=== PATIENT | male | born 1960 | race Caucasian/White ===

== ENCOUNTER 2022-04-15 10:00 | Inpatient (IN) | payer BC ==
[2022-04-15] MEDS ORDERED: LABETALOL 5 MG/ML VIAL MDV IVP STA (10:21)
--- NOTE | 2022-04-15 10:21 | ED ---
General Adult HPI - General Chief complaint: Neuro Symptoms/Deficit Stated complaint: Neuro Symptoms Time Seen by Provider: 04/15/22 10:08 Source: patient, RN notes reviewed Mode of arrival: ambulatory Limitations: no limitations - History of Present Illness Initial comments: Patient is a pleasant 61-year-old male presenting to the emergency department with concern for stroke symptoms. Onset of symptoms was 3 days ago. Patient has noticed weakness of the left side of the face. Patient also feels there is mild weakness of the arm and leg. Patient has had some mild difficulty with walking and has lean towards left little bit. No headache. No confusion. No speech problems. No history of similar symptoms previously. Symptoms have been persistent. - Related Data Home Medications Medication Instructions Recorded Confirmed Aspirin EC [Ecotrin Low Dose] 162 mg PO DAILY 04/15/22 04/15/22 Cholecalciferol [Vitamin D3 (25 25 mcg PO DAILY 04/15/22 04/15/22 Mcg = 1000 Iu)] Zinc 50 mg PO DAILY 04/15/22 04/15/22 Allergies Allergy/AdvReac Type Severity Reaction Status Date / Time No Known Allergies Allergy Verified 04/15/22 10:44 Review of Systems ROS Statement: Those systems with pertinent positive or pertinent negative responses have been documented in the HPI. ROS Other: All systems not noted in ROS Statement are negative. Constitutional: Denies: fever Eyes: Denies: eye pain ENT: Denies: ear pain Respiratory: Denies: cough Cardiovascular: Denies: chest pain Endocrine: Denies: fatigue Gastrointestinal: Denies: abdominal pain Genitourinary: Denies: dysuria Musculoskeletal: Denies: back pain Skin: Denies: rash Neurological: Reports: as per HPI, weakness, paresthesias. Denies: headache, numbness, confusion Past Medical History Past Medical History: Hyperlipidemia, Hypertension Additional Past Medical History / Comment(s): Arthritis History of Any Multi-Drug Resistant Organisms: None Reported Past Surgical History: Orthopedic Surgery Past Psychological History: No Psychological Hx Reported Smoking Status: Never smoker Past Alcohol Use History: Occasional Past Drug Use History: None Reported General Exam Limitations: no limitations General appearance: alert, in no apparent distress Head exam: Present: normocephalic Eye exam: Present: normal appearance, PERRL, EOMI ENT exam: Present: normal oropharynx Neck exam: Present: normal inspection Respiratory exam: Present: normal lung sounds bilaterally Cardiovascular Exam: Present: regular rate, normal rhythm GI/Abdominal exam: Present: soft. Absent: tenderness Extremities exam: Present: normal inspection Neurological exam: Present: alert, oriented X3, CN II-XII intact (Except for mild left facial droop. Forehead not involved.) Expanded Neurological exam: Present: protecting the airway Patient oriented to: Present: person, place, time Speech: Present: fluid speech Cranial nerves: EOM's Intact: Normal, Facial Sensation: Normal, Facial Palsy with Forehead Movement: Abnormal Left Sensory exam: Upper Extremity Light Touch: Normal, Lower Extremity Light Touch: Normal Motor strength exam: RUE: 5, LUE: 4, RLE: 5, LLE: 5 Eye Response: (4) open spontaneously Motor Response: (6) obeys commands Verbal Response: (5) oriented Psychiatric exam: Present: normal affect, normal mood Skin exam: Present: normal color Course Vital Signs 04/15/22 04/15/22 04/15/22 10:02 10:18 11:12 Temperature 97.8 F Pulse Rate 96 78 77 Respiratory 18 18 18 Rate Blood Pressure 241/129 239/132 227/130 O2 Sat by Pulse 100 94 L 94 L Oximetry - Reevaluation(s) Reevaluation #1: 04/15/22 11:32 Patient is not a TPA candidate secondary to onset of symptoms was more than 4.5 hours. EKG Findings - EKG Comments: EKG Findings:: Sinus rhythm with rate of 92. ID 178. QRS 94. QT 375. QTC 425. Normal axis. Normal QRS. Nonspecific ST-T. Medical Decision Making - Medical Decision Making Patient reevaluated. Patient and family updated on results and plan. Patient will need admission with neurology consult. Patient will need further blood pressure monitoring and probable treatment. Dr. Parks has been paged for admission for Dr. Gonzales's patient Case also discussed with Dr. anderson who will admit. He does recommend adding Norvasc. He does request cardiology for hypertension. - Lab Data Result diagrams: 04/15/22 10:56 Lab Results 04/15/22 Range/Units 10:56 WBC 9.9 (3.8-10.6) k/uL RBC 4.98 (4.30-5.90) m/uL Hgb 14.6 (13.0-17.5) gm/dL Hct 45.1 (39.0-53.0) % MCV 90.5 (80.0-100.0) fL MCH 29.4 (25.0-35.0) pg MCHC 32.4 (31.0-37.0) g/dL RDW 12.8 (11.5-15.5) % Plt Count 268 (150-450) k/uL MPV 7.5 Neutrophils % 71 % Lymphocytes % 18 % Monocytes % 8 % Eosinophils % 1 % Basophils % 1 % Neutrophils # 7.0 (1.3-7.7) k/uL Lymphocytes # 1.8 (1.0-4.8) k/uL Monocytes # 0.8 (0-1.0) k/uL Eosinophils # 0.1 (0-0.7) k/uL Basophils # 0.1 (0-0.2) k/uL - Radiology Data Radiology results: report reviewed (Computed tomography scan of the brain shows 1 cm hypodensity right thalmus that may be acute lacunar infarct.), image reviewed (Chest x-ray reveals no acute process.) Critical Care Time Critical Care Time: Yes Total Critical Care Time: 33 Disposition Clinical Impression: Cerebrovascular accident (CVA), Hypertensive emergency Disposition: ADMITTED IP TO THIS HOSP Condition: Serious Is patient prescribed a controlled substance at d/c from ED?: No Referrals: Davin Gonzales MD [Primary Care Provider] - 1-2 days Time of Disposition: 11:21
--- NOTE | 2022-04-15 11:01 | XR ---
EXAMINATION TYPE: XR chest 2V DATE OF EXAM: 04/15/2022 COMPARISON: None INDICATION: Altered mental status and left-sided weakness TECHNIQUE: Frontal and lateral views of the chest are obtained. FINDINGS: The heart size is normal. The pulmonary vasculature is normal. The lungs are clear. IMPRESSION: 1. No acute pulmonary process.
--- NOTE | 2022-04-15 11:05 | CT ---
EXAMINATION TYPE: CT brain wo con DATE OF EXAM: 04/15/2022 COMPARISON: None INDICATION: Neuro deficits-left side weakness/numbness DLP: 1154.4 mGycm, Automated exposure control for dose reduction was used. CONTRAST: None CT of the brain is performed utilizing 3 mm thick sections through the posterior fossa and 3 mm thick sections through the remaining calvarium. Study is performed within 24 hours of arrival to the hosp [facility]. No abnormal hyperdensity is present to suggest an acute intracranial hemorrhage. No mass lesion is evident. There is ill-defined hypodensity within the right thalamus. Correlate for acute lacunar infarct. Ventricles and sulci are appropriate for the patient age. Paranasal sinuses and mastoid air cells within the [id number] are clear. IMPRESSIONS: 1. 1 cm hypodensity within the right thalamus may be an acute lacunar infarct. Correlate with sympt oms.
[2022-04-15 11:25] LABS: Basophils # (A) 0.1 k/uL (0-0.2); Basophils % (A) 1 %; Eosinophils # (A) 0.1 k/uL (0-0.7); Eosinophils % (A) 1 %; HCT 45.1 % (39.0-53.0); HGB 14.6 gm/dL (13.0-17.5); Lymphocytes # (A) 1.8 k/uL (1.0-4.8); Lymphocytes % (A) 18 %; MCH 29.4 pg (25.0-35.0); MCHC 32.4 g/dL (31.0-37.0); MCV 90.5 fL (80.0-100.0); Mean Platelet Volume 7.5; Monocytes # (A) 0.8 k/uL (0-1.0); Monocytes % (A) 8 %; Neutrophils % (A) 71 %; Platelet Count 268 k/uL (150-450); RBC 4.98 m/uL (4.30-5.90); RDW 12.8 % (11.5-15.5); WBC 9.9 k/uL (3.8-10.6)
[2022-04-15] MEDS ORDERED: ASPIRIN 325 MG TAB PO STA (11:32)
[2022-04-15 11:37] LABS: INR 0.9 (<1.2); Partial Thromboplastin Time 24.1 sec (22.0-30.0); Prothrombin Time 10.3 sec (9.0-12.0)
[2022-04-15 11:38] LABS: ALT 38 U/L (4-49); AST 33 U/L (17-59); African American GFR (CKD) >90 (>60 ml/min/1.73 sqM); Albumin 4.3 g/dL (3.5-5.0); Alkaline Phosphatase 117 U/L (38-126); Anion Gap 8 mmol/L; Blood Urea Nitrogen 12 mg/dL (9-20); Calcium 8.9 mg/dL (8.4-10.2); Carbon Dioxide 25 mmol/L (22-30); Chloride 103 mmol/L (98-107); Glucose 217 mg/dL (74-99); Non-African American GFR(CKD) 88 (>60 ml/min/1.73 sqM); Sodium 136 mmol/L (137-145); Total Bilirubin 1.2 mg/dL (0.2-1.3); Total Protein 7.7 g/dL (6.3-8.2)
[2022-04-15] MEDS ORDERED: SODIUM CHLORIDE 0.9% 1,000 ML IV SCH (11:45)
[2022-04-15] MEDS: amLODIPine 5 MG TAB PO SCH (11:58)
--- NOTE | 2022-04-15 14:26 | P.CRDCN ---
History of Present Illness History of present illness: HISTORY OF PRESENTING ILLNESS This is a pleasant 61-year-old male past medical history significant for hypertension (stopped taking all medications), dyslipidemia. He does not follow with a chief nurse executive. We've been asked to see in consultation for hypertension. Patient presents emergency department with left-sided face, arm and left-sided leg weakness. His symptoms began 3 days ago. He had some difficulty walking and noticed weakness in his left side of his face as well. He denies any chest pain, shortness of breath, lightheadedness, dizziness, changes in his speech or vision, headache, altered mental status. His symptoms persisted and he presented to the emergency room for further evaluation. He does endorse a history of high blood pressure and stopped taking all his medications because he believed he didn't need them. He denies any history of CAD, MT, prior stroke, diabetes. He denies tobacco use. On admission brain CT revealed 1 cm hypodensity within the right thalamus may be an acute lacunar infarct. On admission patient found to have blood pressure 241/129. Patient was given IV labetalol 20 mg and started on amlodipine 5 mg. Blood pressure has improved. DIAGNOSTICS EKG reveals sinus rhythm, heart rate 92, no acute ST ST wave abnormalities distress ischemia. Telemetry tracings indicate sinus mechanism Chest xray no acute cardiopulmonary process Laboratory reviewed, CBC unremarkable, sodium 136, potassium 4.0, BUN 12, serum current 0.9, glucose 217, troponin negative Current home medications include aspirin 162 mg daily, vitamin D3, zinc. REVIEW OF SYSTEMS At the time of my exam: CONSTITUTIONAL: Denies fever or chills. CARDIOVASCULAR: Denies chest pain, shortness of breath, orthopnea, PND or palpitations. RESPIRATORY: Denies cough. GASTROINTESTINAL: Denies abdominal pain, diarrhea, constipation, nausea or vomiting. MUSCULOSKELETAL: Denies myalgias. NEUROLOGIC: +left sided weakness Denies numbness, tingling, headache ENDOCRINE: Denies fatigue, weight change, polydipsia or polyurina. GENITOURINARY: Denies burning, hematuria or urgency with micturation. HEMATOLOGIC: Denies history of anemia or bleeding. PHYSICAL EXAMINATION Blood pressure 164/103, heart rate 74, afebrile, oxygen saturations 95% on room air CONSTITUTIONAL: No apparent distress. HEENT: Head is normocephalic. Pupils are equal, round. Sclerae anicteric. Mucous membranes of the mouth are moist. No JVD. No carotid bruit. CHEST EXAMINATION: Lungs are clear to auscultation. No chest wall tenderness is noted on palpation or with deep breathing. HEART EXAMINATION: Regular rate and rhythm. S1, S2 heard. No murmurs, gallops or rub. ABDOMEN: Soft, nontender. Positive bowel sounds. EXTREMITIES: 2+ peripheral pulses, no lower extremity edema and no calf tenderness. NEUROLOGIC EXAMINATION: Patient is awake, alert and oriented x3. ASSESSMENT Hypertension Emergency Acute CVA PLAN Start metoprolol tartrate 25mg BID Continue amlodipine 5mg daily Neurology consulted Obtain 2D echocardiogram and doppler study to assess cardiac structure and function. Check hemoglobin A1C and lipid panel Continue cardiac telemetry Further recommendations based on clinical course Nurse practitioner note has been reviewed by physician. Signing provider agrees with the documented findings, assessment, and plan of care. Past Medical History Past Medical History: Hyperlipidemia, Hypertension Additional Past Medical History / Comment(s): Arthritis History of Any Multi-Drug Resistant Organisms: None Reported Past Surgical History: Orthopedic Surgery Past Psychological History: No Psychological Hx Reported Smoking Status: Never smoker Past Alcohol Use History: Occasional Past Drug Use History: None Reported Medications and Allergies Home Medications Medication Instructions Recorded Confirmed Type Aspirin EC [Ecotrin Low Dose] 162 mg PO DAILY 04/15/22 04/15/22 History Cholecalciferol [Vitamin D3 (25 25 mcg PO DAILY 04/15/22 04/15/22 History Mcg = 1000 Iu)] Zinc 50 mg PO DAILY 04/15/22 04/15/22 History Allergies Allergy/AdvReac Type Severity Reaction Status Date / Time No Known Allergies Allergy Verified 04/15/22 10:44 Physical Exam Vitals: Vital Signs Temp Pulse Resp BP Pulse Ox 04/15/22 13:04 74 18 164/103 95 04/15/22 12:01 72 18 171/106 93 L 04/15/22 11:12 77 18 227/130 94 L 04/15/22 10:18 78 18 239/132 94 L 04/15/22 10:02 97.8 F 96 18 241/129 100 Intake and Output 04/14/22 04/15/22 04/15/22 22:59 06:59 14:59 Other: Weight 113.398 kg Results 04/15/22 10:56 04/15/22 10:56 Cardiac Enzymes 04/15/22 04/15/22 Range/Units 10:56 10:56 AST 33 (17-59) U/L Troponin I <0.012 (0.000-0.034) ng/mL Coagulation 04/15/22 Range/Units 10:56 PT 10.3 (9.0-12.0) sec APTT 24.1 (22.0-30.0) sec CBC 04/15/22 Range/Units 10:56 WBC 9.9 (3.8-10.6) k/uL RBC 4.98 (4.30-5.90) m/uL Hgb 14.6 (13.0-17.5) gm/dL Hct 45.1 (39.0-53.0) % Plt Count 268 (150-450) k/uL Comprehensive Metabolic Panel 04/15/22 Range/Units 10:56 Sodium 136 L (137-145) mmol/L Potassium 4.0 (3.5-5.1) mmol/L Chloride 103 (98-107) mmol/L Carbon Dioxide 25 (22-30) mmol/L BUN 12 (9-20) mg/dL Creatinine 0.92 (0.66-1.25) mg/dL Glucose 217 H (74-99) mg/dL Calcium 8.9 (8.4-10.2) mg/dL AST 33 (17-59) U/L ALT 38 (4-49) U/L Alkaline Phosphatase 117 (38-126) U/L Total Protein 7.7 (6.3-8.2) g/dL Albumin 4.3 (3.5-5.0) g/dL Current Medications Generic Name Dose Route Start Last Admin Trade Name Freq PRN Reason Stop Dose Admin Amlodipine Besylate 5 mg 04/15/22 11:45 04/15/22 11:58 Amlodipine 5 Mg Tab PO 5 mg DAILY WALE Administration Aspirin 325 mg 04/16/22 09:00 Aspirin 325 Mg Tab PO DAILY WALE Sodium Chloride 1,000 mls @ 20 mls/hr 04/15/22 11:45 04/15/22 11:58 Saline 0.9% IV 20 mls/hr .Q24H WALE Administration Metoprolol Tartrate 25 mg 04/15/22 14:00 Metoprolol Tartrate 25 Mg Tab PO BID WALE Intake and Output 0531/22 06/01/22 06/01/22 22:59 06:59 14:59 Other: Weight 113.398 kg Patient Weight 04/16/22 06:59 Weight 113.398 kg 04/15/22 10:56 04/15/22 10:56
--- NOTE | 2022-04-15 17:43 | P.CNNES ---
History of Present Illness Consult date: 04/15/22 Requesting physician: Yovany Herrera Reason for Consult: CVA History of Present Illness: Patient is a 61-year-old left-handed male (although writes with right hand), brought in by his [id number] for stroke symptoms. He arrived to the hospital today at 10 AM. 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 It mainly affected the left leg. Patient also felt his left arm was heavy, numb. He did not seek medical attention thinking that "he will be okay". Patient states that over the 7 days, his left leg improved, but his left arm continued to feel heavy, weak. His daughter in law came in, saw him with these deficits including facial droop, therefore forced him to go to ER. Vital signs arrival blood pressure 241/129, pulse rate at 60 pressure 97.8. Blood pressure slowly improved, but still is 164/103. Chest x-ray showed no acute process. EKG shows sinus rhythm, with minimal ST depression. CT head showed 1 cm hypodensity within the right thalamus may be acute lacunar infarct. Correlate with symptoms. I personally reviewed CT head, agree with the findings. The lesion noted in the right thalamus appears subacute CVA. Blood test shows normal CBC, PT/PTT, sodium 136 potassium 4.0, normal renal functions. Normal hepatic panel and troponin. Patient has smoked 1 pack per day for 10-15 years, quit 30 years ago. Denies diabetes. He does have hypertension for 10 years. He was prescribed HCTZ, but he quit taking it 2 years ago. The last time he states that his blood pressure was checked was 2 years ago when it was 130/70. Home medications include aspirin 162 mg daily, zinc 50 mg and vitamin D 25 1000 units. Patient states that his mother also suffered from a stroke. Review of Systems As mentioned above in detail. All other 14 points of review of systems reviewed and unremarkable. Past Medical History Past Medical History: Hyperlipidemia, Hypertension Additional Past Medical History / Comment(s): Arthritis History of Any Multi-Drug Resistant Organisms: None Reported Past Surgical History: Orthopedic Surgery Past Psychological History: No Psychological Hx Reported Smoking Status: Never smoker Past Alcohol Use History: Occasional Past Drug Use History: None Reported Medications and Allergies Home Medications Medication Instructions Recorded Confirmed Type Aspirin EC [Ecotrin Low Dose] 162 mg PO DAILY 04/15/22 04/15/22 History Cholecalciferol [Vitamin D3 (25 25 mcg PO DAILY 04/15/22 04/15/22 History Mcg = 1000 Iu)] Zinc 50 mg PO DAILY 04/15/22 04/15/22 History Allergies Allergy/AdvReac Type Severity Reaction Status Date / Time No Known Allergies Allergy Verified 04/15/22 10:44 Physical Examination - Vital Signs Vital Signs: Vital Signs Temp Pulse Resp BP Pulse Ox 04/15/22 13:04 74 18 164/103 95 04/15/22 12:01 72 18 171/106 93 L 04/15/22 11:12 77 18 227/130 94 L 04/15/22 10:18 78 18 239/132 94 L 04/15/22 10:02 97.8 F 96 18 241/129 100 Intake and Output 04/14/22 04/15/22 04/15/22 22:59 06:59 14:59 Other: Weight 113.398 kg Patient is a late middle aged male, in no acute distress. Patient is alert awake oriented to time place and person. Speech and language functions are normal. Attention, concentration and fund of knowledge is adequate. On cranial nerve examination, pupils are equal, round and reacting to light, visual caballero are full on confrontation, extraocular muscles are intact with no nystagmus. Patient has a mild left facial asymmetry. His tongue protrudes to the midline. Palatal elevation and sensation normal, hearing and shoulder shrug normal, facial sensation normal. Shoulder shrug normal. On muscle strength testing, there is left-sided pronation, but no drift. Patient's muscle strength is normal in arms and legs distally and proximally, including detailed testing of the left side of the body. Deep tendon reflexes are symmetric, 1 at the biceps, 1 brachioradialis, trace at the knees and ankles and plantars are flat bilaterally. Sensory to touch is equal with no neglect on double simultaneous stimulation. Cerebellar function showed mild ataxia for [id number] testing only on the left upper limb, but not on the right upper limb. No ataxia in the lower limbs. Tone and bulk of muscles normal. Gait deferred. On general examination, there is no carotid bruit or murmur, S1-S2 audible. Abdomen is soft nontender. No organomegaly, bowel sounds present. Chest is clear to auscultation. Peripheral pulses are present. No edema. Results - Laboratory Findings CBC and BMP: 04/15/22 10:56 04/15/22 10:56 Abnormal Lab Findings: Abnormal Labs 04/15/22 10:56 Sodium 136 L Glucose 217 H Assessment and Plan Assessment: * Subacute right thalamic stroke, likely from small vessel disease. Patient was not a candidate for TPA, as his symptoms have been present for [address] head confirmed lacunar substroke right thalamic region. * Hypertension, uncontrolled Plan: * Patient was already on aspirin 162 mg daily for a number of years. As patient has failed aspirin regimen, we will start Plavix 75 mg daily. After 21 days of DAP, would recommend stopping aspirin and continue Plavix indefinitely. * Fasting a.m. lipid panel, hemoglobin A1c * Carotid Doppler * 2-D echo * Patient already has passed the acute phase of CVA (symptoms started 7 days ago). Suggest slowly, gradually bring the blood pressure down to normotensive level. Definitely avoid hypotension. * Telemetry monitoring, rule out arrhythmia. * PT and OT. * Heparin subcu for DVT prophylaxis. * Neurology will follow. Thank you for the consult.
[2022-04-15] MEDS: CLOPIDOGREL 75 MG TAB PO SCH (18:31)
[2022-04-15] MEDS: METOPROLOL TARTRATE 25 MG TAB PO SCH ×2 (18:31→20:13)
--- NOTE | 2022-04-15 19:06 | US ---
EXAMINATION TYPE: US carotid duplex BILAT DATE OF EXAM: 04/15/2022 COMPARISON: NONE CLINICAL HISTORY: Stenosis. Stroke symptoms EXAM MEASUREMENTS: RIGHT: Peak Systolic Velocity (PSV) cm/sec ----- Right CCA: 63.6 ----- Right ICA: 96.9 ----- Right ECA: 103.4 ICA/CCA ratio: 1.5 RIGHT: End Diastole cm/sec ----- Right CCA: 18.6 ----- Right ICA: 41.3 ----- Right ECA: 14.1 LEFT: Peak Systolic Velocity (PSV) cm/sec ----- Left CCA: 76.6 ----- Left ICA: 87.9 ----- Left ECA: 130.7 ICA/CCA ratio: 1.1 LEFT: End Diastole cm/sec ----- Left CCA: 22.3 ----- Left ICA: 29.6 ----- Left ECA: 14.4 VERTEBRALS (direction of flow): Right Vertebral: Antegrade Left Vertebral: Antegrade Rhythm: Normal Intraluminal wall thickening noted. Mild plaque formation seen in the bilateral carotid bulb. No sign ificant stenosis seen today. IMPRESSION: Less than 50% stenosis of the bilateral carotid bifurcations. Criteria for Assigning % of Stenosis / Diameter reduction (Estimation based on the indirect measurements of the internal carotid artery velocities (ICA PSV). 1. Normal (no stenosis)=ICA PSV < 125 cm/s: ratio < 2.0: ICA EDV<40 cm/s. 2. Less than 50% stenosis=ICA PSV < 125 cm/s: ratio < 2.0: ICA EDV<40 cm/s. 3. 50 to 69% stenosis=ICA PSV of 125 to 230 cm/s: ration 2.0 ? 4.0: ICA EDV 40-100 cm/s. 4. Greater than 70% stenosis to near occlusion= ICA PSV > 230 cm/s: ratio > 4.0: ICA EDV > 100 cm/s. 5. Near occlusion= ICA PSV velocities may be low or undetectable: variable ratio and ICA EDV. 6. Total occlusion=unable to detect flow.
[2022-04-15] MEDS: HEPARIN SODIUM,PORCINE/PF 5,000 UNIT/0.5 ML SYRINGE SQ SCH (20:12)
[2022-04-16 04:42] VITALS: RESP 18
[2022-04-16] MEDS ORDERED: ASPIRIN 325 MG TAB PO SCH (09:00)
[2022-04-16 09:20] LABS: Chol/HDL Ratio 6.17 Ratio; LDL Cholesterol,Calculated 135.1 mg/dL (0.0-131.0)
[2022-04-16] MEDS: CLOPIDOGREL 75 MG TAB PO SCH (09:36)
[2022-04-16] MEDS: amLODIPine 5 MG TAB PO SCH (09:37)
[2022-04-16] MEDS: METOPROLOL TARTRATE 25 MG TAB PO SCH (09:37)
[2022-04-16] MEDS: HEPARIN SODIUM,PORCINE/PF 5,000 UNIT/0.5 ML SYRINGE SQ SCH (09:37)
--- NOTE | 2022-04-16 10:18 | CA ---
Transthoracic Echo Report Name: Reg Haley Age: 61 Gender: M : 1960 Exam Date: 04/15/2022 13:07 Exam Location: [facility] Ht (in): 70 Wt (lb): 250 Ordering Physician: Yovany Herrera DO Attending/Referring Phys: Fish Processor Jaclyn Tsai RDCS Procedure CPT: Indications: Thrombus Cardiac Hx: Technical Quality: Fair Contrast 1: Total Dose (mL): Contrast 2: Total Dose (mL): MEASUREMENTS (Male / Female) Normal Values 2D ECHO LV Diastolic Diameter PLAX 3.7 cm 4.2 - 5.9 / 3.9 - 5.3 cm LV Systolic Diameter PLAX 2.5 cm IVS Diastolic Thickness 1.7 cm 0.6 - 1.0 / 0.6 - 0.9 cm LVPW Diastolic Thickness 1.7 cm 0.6 - 1.0 / 0.6 - 0.9 cm LV Relative Wall Thickness 0.9 RV Internal Dim ED PLAX 3.1 cm LA Volume 65.7 cm??? 18 - 58 / 22 - 52 cm??? M-MODE Aortic Root Diameter MM 3.8 cm LA Systolic Diameter MM 3.7 cm LA Ao Ratio MM 1.0 AV Cusp Separation MM 2.3 cm DOPPLER AV Peak Velocity 169.8 cm/s AV Peak Gradient 11.5 mmHg MV Area PHT 3.1 cm??? Mitral E Point Velocity 70.5 cm/s Mitral A Point Velocity 93.5 cm/s Mitral E to A Ratio 0.8 MV Deceleration Time 245.1 ms MV E' Velocity 6.5 cm/s Mitral E to MV E' Ratio 10.9 TR Peak Velocity 179.1 cm/s TR Peak Gradient 12.8 mmHg Right Ventricular Systolic Press 17.6 mmHg FINDINGS Left Ventricle Severely increased left ventricular wall thickness. Normal left ventricular systolic function with no obvious regional wall motion abnormalities. Left ventricular ejection fraction is estimated at 55-60 %. Normal left ventricular diastolic filling pattern. Right Ventricle Normal right ventricular size and function. Right ventricular systolic pressure within normal limits. Right Atrium Normal right atrial size. Left Atrium Mildly increased left atrial volume. No evidence for an atrial septal defect. Mitral Valve Structurally normal mitral valve. No mitral stenosis, regurgitation or prolapse. Aortic Valve No aortic valve stenosis or regurgitation. Tricuspid Valve Structurally normal tricuspid valve. Mild tricuspid regurgitation. Pulmonic Valve Structurally normal pulmonic valve. Trace pulmonic regurgitation. Pericardium No pericardial effusion. Aorta Normal size aortic root and proximal ascending aorta. CONCLUSIONS Severe left ventricular hypertrophy Left ventricular ejection fraction 55-60% Mild left atrial dilation Mild tricuspid regurgitation Normal RVSP 17 No pericardial effusion Previewed by: Dr. Corey Fortune DO (Electronically Signed) Final Date: 16 April 2022 10:17
[2022-04-16] MEDS ORDERED: ATORVASTATIN 80 MG TAB PO SCH (10:30)
[2022-04-16 11:17] VITALS: BMI 35.9
--- NOTE | 2022-04-16 11:56 | P.PN ---
Subjective This is a pleasant 61-year-old male past medical history significant for hypertension (stopped taking all medications), dyslipidemia. 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 We've been asked to see in consultation for hypertension. Patient presents emergency department with left-sided face, arm and left-sided leg weakness. His symptoms began 3 days ago. He had some difficulty walking and noticed weakness in his left side of his face as well. His symptoms persisted and he presented to the emergency room for further evaluation. He does endorse a history of high blood pressure and stopped taking all his medications because he believed he didn't need them. He denies any history of CAD, [place], prior stroke, diabetes. He denies tobacco use. On admission brain CT revealed 1 cm hypodensity within the right thalamus may be an acute lacunar infarct.On admission patient found to have blood pressure 241/129. Patient was given IV labetalol 20 mg and started on amlodipine 5 mg. Blood pressure has improved. 04/16/2022 Patient seen and examined at bedside, no acute distress. He denies any chest pain or shortness of breath. His symptoms have improved. Blood pressure 116/69. Telemetry reviewed patient maintaining sinus mechanism heart rate 60s to 70s. He is currently maintained on amlodipine 5 mg daily, metoprolol titrate 25 mg twice a day, aspirin, Plavix 75 mg daily Echocardiogram revealed EF of 5560%, mild left atrial dilation, mild tricuspid regurgitation. PHYSICAL EXAMINATION Blood pressure 116/69, heart rate 76, afebrile, saturation 95% room air CONSTITUTIONAL: No apparent distress. HEENT: Neck Supple. No JVD. No carotid bruit. CHEST EXAMINATION: Lungs are clear to auscultation. No chest wall tenderness is noted on palpation or with deep breathing. HEART EXAMINATION: Regular rate and rhythm. S1, S2 heard. No murmurs, gallops or rub. ABDOMEN: Soft, nontender. Positive bowel sounds. EXTREMITIES: 2+ peripheral pulses, no lower extremity edema and no calf tenderness. NEUROLOGIC EXAMINATION: Patient is awake, alert and oriented x3. ASSESSMENT Hypertension Emergency Acute CVA Dyslipidemia PLAN Patient's BP has improved Continue current medical therapy with metoprolol tartrate 25mg BID and amlodipine 5mg daily Start atorvastatin 80mg daily Neurology following We will follow the patient as needed. Recommend follow up with Dr. Rivas in 2 weeks Nurse practitioner note has been reviewed by physician. Signing provider agrees with the documented findings, assessment, and plan of care. Objective - Vital Signs Vital signs: Vital Signs Temp 98 F 04/15/22 23:25 Pulse 76 04/16/22 04:25 Resp 18 04/16/22 04:25 BP 116/69 04/16/22 04:25 Pulse Ox 97 04/16/22 08:16 FiO2 Intake & Output 04/15/22 04/16/22 04/16/22 18:59 06:59 18:59 Weight 113.398 kg Other: Voiding Method Toilet Toilet # Voids 2 - Labs CBC & Chem 7: 04/15/22 10:56 04/15/22 10:56 Labs: Abnormal Lab Results - Last 24 Hours (Table) 04/15/22 04/15/22 Range/Units 10:56 10:56 Sodium 136 L (137-145) mmol/L Glucose 217 H (74-99) mg/dL Hemoglobin A1c 9.7 H (0.0-6.0) %
[2022-04-16] MEDS ORDERED: amLODIPine 5 MG TAB PO STA (13:03)
[2022-04-16] MEDS: metFORMIN 500 MG TAB PO SCH ×2 (13:27→17:45)
--- NOTE | 2022-04-16 13:32 | HP ---
HISTORY AND PHYSICAL DATE OF SERVICE: 04/15/2022 CHIEF COMPLAINT: Weakness on the left side of the body. HISTORY OF PRESENT ILLNESS: This 61-year-old gentleman with a past medical history of hypertension and hyperlipidemia, being followed by Dr. Davin Gonzales in the outpatient setting, was noting weakness of the left side and left face for the last 3 days. Because of his daughter's insistence, the patient came to the hospital today and was found to have right thalamic infarct. The patient was admitted for further evaluation. Patient had some speech difficulties, also. There is no history of any fever, rigor or chills at this time. PAST MEDICAL HISTORY: Hypertension, hyperlipidemia. HOME MEDICATIONS: Reviewed. They include vitamin D3. ALLERGIES: NONE. FAMILY HISTORY: Hypertension, hyperlipidemia. SOCIAL HISTORY: Previous smoking. REVIEW OF SYSTEMS: Fourteen-point review of systems is negative. PHYSICAL EXAMINATION: Pulse 74, blood pressure ntd respiration 18. HEENT: Conjunctivae normal. NECK: No jugular venous distention. CARDIOVASCULAR: S1, S2 muffled. RESPIRATION: Breath sounds diminished at the bases. No rhonchi. No crackles. ABDOMEN: Soft, non-tender. LEGS: No edema. No swelling. NERVOUS SYSTEM: Minimal flattening of the face on the left side. SKIN: No ulcer, rash, bleeding. JOINTS: No active deforming arthropathy. LABS: Reviewed. ASSESSMENT: 1. Acute to subacute right thalamic stroke causing left-sided symptoms. 2. Diabetes mellitus, type 2, new onset. 3. Hyperlipidemia with cholesterol of 213. 4. Hypertension. RECOMMENDATIONS AND DISCUSSION: In this 61-year-old gentleman who presented with multiple complex medical issues, we will monitor the patient closely. I recommend antiplatelet agents, Lipitor, Plavix. Neurology consultation. Complete neurovascular workup. Prognosis guarded. Further recommendations to follow. Discussed with the patient and daughter at the bedside. I would also recommend metformin and monitor blood sugars closely at home. MMODL / IJN: [id number] / [facility]
--- NOTE | 2022-04-16 15:30 | P.DS ---
Providers Date of admission: 04/15/22 11:32 Expected date of discharge: 04/16/22 Attending physician: Emmanuel Cueva MD Consults: 04/15/22 11:33 Consult Physician Urgent Consulting Provider: Garry Brewster Consult Reason/Comments: cva Do you want consulting provider notified?: Yes 04/15/22 11:35 Consult Physician Urgent Consulting Provider: Lobo Garcia Consult Reason/Comments: Hypertensive emergency Do you want consulting provider notified?: Yes Primary care physician: Davin Gonzales Hospital Course: Final diagnosis Acute to subacute right pelvic stroke causing left-sided symptoms diabetes mellitus, type II, new onset with a hemoglobin A1c of 9.7 Hyperlipidemia with cholesterol 213 Hypertension Discharge disposition Patient is being discharged in a stable condition with guarded prognosis to home. Patient will follow-up with Dr. Gonzales in the outpatient setting upon discharge. Patient is to follow up with neurology in one week and also cardiology in 1-2 weeks as scheduled. Patient will continue on statin therapy along with aspirin and Plavix. Patient encouraged to continue with aspirin and Plavix dual antiplatelet therapy for the next 21 days and then may discontinue aspirin and continue with just Plavix. Total time taken is greater than 35 minutes. Hospital course This is a 61-year-old male who was recently admitted with left side weakness and left facial weakness that have been ongoing more than 3 days with symptoms starting prior to that and was being closely monitored. Patient's daughter was adamant about him going to the hospital for further evaluation and patient was found to have a right traumatic infarct and underwent neurological workup. Patient had some speech difficulties on admission that him and his daughter report to resolving is at this time. Patient will need close neurological follow-up within 1 week and will continue with aspirin and Plavix and I dual platelet therapy for 21 days and then will continue with Plavix and may discontinue aspirin indefinitely. Patient also to continue with statin therapy and encourage the patient to follow heart healthy low-cholesterol diabetic diet. Patient's hemoglobin A1c was found to be elevated at 9.7 and will initiate Glucophage 500 mg twice daily and encouraged Accu-Cheks before meals and at bedtime and to keep a diary for primary care follow-up. Patient is to follow with consistent carb diet. Patient with elevated blood pressures and has been started on Norvasc and also encourage the patient and daughter to monitor blood pressure daily and keep a diary of this for primary care follow-up. 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 Work note to be provided. Recommend repeat basic labs with primary care provider Dr. Gonzales. Currently no reports of chest pain, shortness of breath, or palpitations. Patient is afebrile. No reports of nausea or vomiting and patient is tolerating diet. Patient will be discharged home today. Guarded prognosis. On exam vital signs are stable. Cardio S1, S2 are muffled. Respiratory system shows diminished breath sounds at the bases with no wheezing or rhonchi noted. Abdomen is soft and obese, and nontender. Nervous system shows no focal defic its. Please refer to medication reconciliation sheet for a list of medications. The impression and plan of care has been dictated by Kathy Handy, Nurse Practitioner as directed. Dr. Charly MD I have performed a history and examination and MDM of this patient, discussed the same with the dictator, and agree with the dictator's assessment and plan as written ,documented as a scribe. Based on total visit time, I have performed more than 50% of the visit. Patient Condition at Discharge: Stable Plan - Discharge Summary Discharge Rx Participant: Yes New Discharge Prescriptions: New Metoprolol Tartrate [Lopressor] 25 mg PO BID 30 Days #60 tab amLODIPine [Norvasc] 10 mg PO DAILY 30 Days #30 tab metFORMIN HCL [Glucophage] 500 mg PO BID-W/MEALS 30 Days #60 tab Atorvastatin [Lipitor] 40 mg PO DAILY 30 Days #30 tablet Clopidogrel [Plavix] 75 mg PO DAILY 30 Days #30 tab Continue Cholecalciferol [Vitamin D3 (25 Mcg = 1000 Iu)] 25 mcg PO DAILY Zinc 50 mg PO DAILY Aspirin EC [Ecotrin Low Dose] 162 mg PO DAILY Discharge Medication List Aspirin EC [Ecotrin Low Dose] 162 mg PO DAILY 04/15/22 [History] Cholecalciferol [Vitamin D3 (25 Mcg = 1000 Iu)] 25 mcg PO DAILY 04/15/22 [History] Zinc 50 mg PO DAILY 04/15/22 [History] Atorvastatin [Lipitor] 40 mg PO DAILY 30 Days #30 tablet 04/16/22 [Rx] Clopidogrel [Plavix] 75 mg PO DAILY 30 Days #30 tab 04/16/22 [Rx] Metoprolol Tartrate [Lopressor] 25 mg PO BID 30 Days #60 tab 04/16/22 [Rx] amLODIPine [Norvasc] 10 mg PO DAILY 30 Days #30 tab 04/16/22 [Rx] metFORMIN HCL [Glucophage] 500 mg PO BID-W/MEALS 30 Days #60 tab 04/16/22 [Rx] Follow up Appointment(s)/Referral(s): Davin Gonzales MD [Primary Care Provider] - 1-2 days Ayesha Rivas MD [STAFF PHYSICIAN] - 1 Week Ava Elizondo MD [Medical Doctor] - 1 Week Activity/Diet/Wound Care/Special Instructions: Please provide work note for the next 2 weeks off Activity Limited until follow-up Follow-up with primary care provider on discharge Follow-up with cardiology in 1-2 weeks as discussed Follow-up with neurology in one week Continue taking aspirin and Plavix for 21 days and then may discontinue aspirin Continue heart healthy diabetic diet Recommend monitor blood sugars before meals and at bedtime and keep a diary for primary care follow-up Recommend monitoring blood pressures closely and keep a diary of daily readings for primary care follow-up as well Patient is to be off of work until evaluated by neurology in the outpatient setting Discharge Disposition: HOME SELF-CARE
[2022-04-16 17:23] VITALS: BP 169/105; PULSE 70
[2022-04-16 17:25] VITALS: TEMP 98.1
[2022-04-17] MEDS ORDERED: amLODIPine 10 MG TAB PO SCH (09:00)
--- NOTE | 2022-04-17 09:58 | P.PN ---
Subjective Progress Note Date: 04/16/22 Patient was seen for a follow-up. Patient's family was also present today. Patient states he is feeling better. He offers no new complaints. Objective - Vital Signs Vital signs: Vital Signs Temp 97.6 F 04/16/22 08:00 Pulse 74 04/16/22 08:00 Resp 18 04/16/22 08:00 BP 176/99 04/16/22 09:30 Pulse Ox 97 04/16/22 08:16 FiO2 Intake & Output 04/15/22 04/16/22 04/16/22 18:59 06:59 18:59 Weight 113.398 kg 113.398 kg Other: Voiding Method Toilet Toilet Toilet # Voids 2 - Exam Patient's mental status, speech and language functions are normal. His left facial droopiness has improved. Patient continues to have mild left pronation, but no drift. The strength is normal. Sensations are normal and equal, with no neglect. Cerebellar function still reveal slight ataxia for [id number] testing on the left. Also has very mild ataxia for [id number] on the left. Patient states his balance is fine. - Labs CBC & Chem 7: 04/15/22 10:56 04/15/22 10:56 Labs: Abnormal Lab Results - Last 24 Hours (Table) 04/15/22 04/15/22 Range/Units 10:56 10:56 Hemoglobin A1c 9.7 H (0.0-6.0) % Triglycerides 217.00 H (0.00-149.00) mg/dL Cholesterol 213.00 H (0.00-200.00) mg/dL LDL Cholesterol, Calc 135.1 H (0.0-131.0) mg/dL VLDL Cholesterol, Calc 43.40 H (5.00-40.00) mg/dL HDL Cholesterol 34.50 L (40.00-60.00) mg/dL Assessment and Plan Assessment: * Subacute right thalamic stroke, likely from small vessel disease. Patient was not a candidate for TPA, as his symptoms have been present for [address] head confirmed lacunar substroke right thalamic region. * Hypertension, uncontrolled * New onset diabetes * Hyperlipidemia Plan: * Patient was already on aspirin 162 mg daily for a number of years. As patient has failed aspirin regimen, we will start Plavix 75 mg daily. After 21 days of DAP, would recommend stopping aspirin and continue Plavix indefinitely. * Fasting a.m. lipid panel with cholesterol 213, LDL 135, HDL 34 and triglycerides 217. Patient to be continued on Lipitor 40 mg daily. * Hemoglobin A1c 9.7. Patient has new onset diabetes. Internal medicine to address new onset diabetes. * Carotid Doppler revealed less than 50% stenosis of bilateral ICA. Antegrade flow in both vertebral arteries. * 2-D echo revealed severe left ventricular hypertrophy. EF is 55-60%. Mild left atrial dilation. Mild TR. No evidence for an atrial septal defect. * Optimize blood pressure control to normotensive level. Avoid hypotension. * Neurologically clear for discharge. Patient to follow up with a neurologist in 1-2 weeks. * Patient works with dangerous machineries. Recommended to stay off work, until cleared by neurologist as outpatient.
== END 2022-04-16 17:55 | disposition home or self-care (01) | DRG 65 ==
LOC: EC 10:00 → 3SCARD 11:32
PROVIDERS: ADMIT Internal Medicine; ATTEND Internal Medicine
DX: I63.81 Other cerebral infarction due to occlusion or stenosis of small artery (principal); I16.1 Hypertensive emergency; G81.94 Hemiplegia, unspecified affecting left nondominant side; E11.9 Type 2 diabetes mellitus without complications; R27.0 Ataxia, unspecified; R29.810 Facial weakness; I07.1 Rheumatic tricuspid insufficiency; I37.1 Nonrheumatic pulmonary valve insufficiency; E78.5 Hyperlipidemia, unspecified; I10 Essential (primary) hypertension; M19.90 Unspecified osteoarthritis, unspecified site; Z91.14 Patient's other noncompliance with medication regimen; Z79.82 Long term (current) use of aspirin; Z87.891 Personal history of nicotine dependence; Z82.3 Family history of stroke; Z82.49 Family history of ischemic heart disease and other diseases of the circulatory system; E66.9 Obesity, unspecified; Z79.02 Long term (current) use of antithrombotics/antiplatelets; Z79.84 Long term (current) use of oral hypoglycemic drugs; Z68.35 Body mass index [BMI] 35.0-35.9, adult
CPT/HCPCS: 36415; 70450; 71046; 80053; 80061; 83036; 84484; 85025; 85610; 85730; 93005; 93306; 93880; 94760; 96374; 99291